=== PATIENT | female | born 1975 | race African-American/Black ===

== ENCOUNTER 2019-11-24 08:44 | Emergency (ER) | payer SELFPAY ==
[~2019-11-24] VITALS: Ht 175.3 cm; Wt 80.0 kg
[2019-11-24] MEDS ORDERED: LORAZEPAM 1MG TABLET PO ONE (09:15)
[2019-11-24 10:46] VITALS: BP 138/76
== END 2019-11-24 10:48 | disposition home or self-care (01) ==
LOC: ER 08:44
DX: F41.9 Anxiety disorder, unspecified (principal); S46.911A Strain of unspecified muscle, fascia and tendon at shoulder and upper arm level, right arm, initial encounter; X58.XXXA Exposure to other specified factors, initial encounter; Y93.89 Activity, other specified; Y92.018 Other place in single-family (private) house as the place of occurrence of the external cause
CPT/HCPCS: 93005; 99283